=== PATIENT | female | born 1955 | race Caucasian/White ===

== ENCOUNTER 2017-02-25 16:03 | Inpatient (IN) | payer BC ==
[~2017-02-25] VITALS: Ht 165.1 cm; Wt 64.6 kg
--- NOTE | ~2017-02-25 | O ---
[place], [place] OPERATIVE NOTE [id number] UN[facility] #: [id number] ROOM: 528 DOCTOR: MERRITT PARHAM MD BIRTHDATE: [birth year] DOS: 02/26/2017 PREOPERATIVE DIAGNOSIS: Acute appendicitis. POSTOPERATIVE DIAGNOSIS: Acute appendicitis. PROCEDURE: Laparoscopic appendectomy. SURGEON: Merritt Pahram MD RANGE EXAMINER: PGY1. ANESTHESIA: General with endotracheal intubation. INDICATIONS: This is a 61-year-old lady admitted with a history of worsening abdominal pain who is here for the above-mentioned procedure. The CAT scan on admission, showed early acute appendicitis. The procedure and its complications explained to the patient in detail preoperatively. Complications that were discussed included, but were not limited to bleeding, infection, hematoma/seroma/abscess formation, prolonged postoperative pain, damage to underlying vital structures and incisional hernia formation. She agreed to proceed. DESCRIPTION OF PROCEDURE: After identifying the patient, the patient was brought to the operating suite and laid in the supine position. After induction of general anesthesia, a Desai catheter was placed and the parts were then painted and draped in the usual sterile fashion. A timeout procedure was called. An incision was made above the umbilicus in a transverse fashion. The skin and the subcutaneous tissue were incised. The fascia was incised and 2 stay sutures with 0 Vicryl were taken. The peritoneum was opened and a 10 mm Jigar port was introduced into the peritoneal cavity. A pneumoperitoneum was created. Under direct vision, a left lower quadrant incision of 10 mm and a suprapubic incision of 5 mm was made and appropriate size ports were introduced. The patient was placed in a Trendelenburg, right side up position. The cecum was mobilized and the appendix was visualized. This was found to be an inflamed without any perforation or any surrounding abscess. With the help of an Endo-Radha forceps, the appendix was held up and the mesoappendix as well as the base of the appendix was stapled across with the help of Endo-SCOTT stapler. Thereafter, the appendix was placed in an EndoCatch bag and removed from the peritoneal cavity and sent for histopathological diagnosis. Thereafter, the stump of the appendix was visualized and there was no bleeding seen. At this point, the suprapubic and the left lower quadrant ports were removed and there was no bleeding seen. The umbilical port was also removed. Thereafter, the stay sutures were tied together and an additional 0 Vicryl suture was taken to close the fascia. The edges of the skin were approximated with the help of 4-0 Vicryl in a subcuticular running fashion. Dressings were placed on all the three incisions. The patient tolerated the procedure well. There were no complications. Dr. Merritt Parham, the attending surgeon, was present throughout the operating case. [place], [place] OPERATIVE NOTE NAME: KASIA WANG UNIT #: [id number] ROOM: 528 DOCTOR: MERRITT PARHAM MD BIRTHDATE: [birth year] Merritt Parham MD CM:OPRECORD:OPERATIVE NOTE [id number] MERRITT PARHAM MD 02/26/17 0832 interface
[~2017-02-25 16:03] MED LIST: ASPIRIN81 MG PO; ATARAX25 MG PO; AUVI-Q0.3 MG/0.3 MR; CALCIUM1 CAP PO; FISH OIL 10001000 MG PO; GLIPIZIDE5 MG PO; GLUCOSAMINE500 M1 PO; JANUMET 500 MG-1 TAB PO; KENALOG0.1% TP; MEDROL DOSEPAK4 MG PO; METFORMIN500 MG PO; PEPCID20 MG PO; PERCOCET 325 MG1 TA2 PO; PREDNISONE10 MG PO
[2017-02-25 16:28] VITALS: BP 148/66
[2017-02-25] MEDS ORDERED: DAILY VALUE1 EACH PO (16:29)
[2017-02-25] MEDS ORDERED: ACTOS15 M1 PO (16:29)
[2017-02-25] MEDS ORDERED: ASPIRIN81 M1 PO (16:29)
[2017-02-25 16:42] LABS: BILIRUBIN NEGATIVE (NEGATIVE); BLOOD 1+ (NEGATIVE); CLARITY SL CLOUDY (CLEAR); COLOR YELLOW (YELLOW); GLUCOSE 1+ (NEGATIVE); KETONE NEGATIVE (NEGATIVE); LEUKO ESTERASE 2+ (NEGATIVE); NITRITE NEGATIVE (NEGATIVE); PROTEIN NEGATIVE (NEGATIVE); UROBILINOGEN 0.2 E.U./dl (0.2-1.0)
[2017-02-25 16:54] LABS: BACTERIA 1+; MUCOUS 1+; RBC 0-2 rbc/hpf (0-2); URINE REFLEX COMMENT YES (NO); WBC 21-30 wbc/hpf (0-5)
[2017-02-25 17:15] LABS: BASO % 0.2 % (0.0-1.0); HEMATOCRIT 44.7 % (37.0-47.0); HEMOGLOBIN 14.5 g/dl (12.0-16.0); IG # 0.1 10*3/uL (0.0-0.1); LYMPH # 0.8 10*3/uL (1.3-4.4); LYMPH % 5.1 % (27.0-41.0); MEAN CELL VOLUME 88.7 fl (81.0-99.0); MEAN CORPUSCULAR HGB 28.8 pg (27.0-31.0); MEAN CORPUSCULAR HGB CONC 32.4 g/dl (33.0-37.0); MEAN PLATELET VOLUME 10.3 fl (9.6-12.3); MONO # 0.9 10*3/uL (0.1-1.0); MONO % 5.6 % (3.0-9.0); NEUT % 88.7 % (47.0-73.0); PLATELET COUNT AUTOMATED 280 10*3/uL (130-400); RED BLOOD COUNT 5.04 10*6/uL (4.10-5.10); RED CELL DISTRI WIDTH 14.6 % (0-14.5); WHITE BLOOD COUNT 15.8 10*3/uL (4.8-10.8)
[2017-02-25 17:31] LABS: ALBUMIN 4.1 gm/dl (3.1-4.5); ALKALINE PHOSPHATASE 82 U/L (45-117); BILIRUBIN, TOTAL 0.4 mg/dl (0.2-1.0); BUN 13 mg/dl (7-24); C-REACTIVE PROTEIN 1.17 MG/DL (0-0.3); CARBON DIOXIDE 27 mmol/L (21-32); CHLORIDE 102 mmol/L (98-107); EST GLOM FILT AFRICAN AMERICAN > 60 ml/min; GLUCOSE 185 mg/dL (65-99); POTASSIUM 3.9 mmol/L (3.5-5.1); SGOT/AST 18 IU/L (3-35); SGPT/ALT 29 U/L (12-78); SODIUM 140 mmol/L (136-145); TOTAL PROTEIN 7.9 gm/dL (6.4-8.2)
[2017-02-25 21:28] VITALS: BP 149/72
[2017-02-25 21:30] VITALS: BP 149/72
[2017-02-26] VITALS (8 sets, daily range): BP systolic 136–145; BP diastolic 65–86
[2017-02-26 06:16] LABS: BASO % 0.2 % (0.0-1.0); EOS % 0.1 % (1.0-4.0); HEMATOCRIT 40.9 % (37.0-47.0); HEMOGLOBIN 13.1 g/dl (12.0-16.0); IG # 0.1 10*3/uL (0.0-0.1); LYMPH # 1.2 10*3/uL (1.3-4.4); LYMPH % 7.2 % (27.0-41.0); MEAN CELL VOLUME 89.3 fl (81.0-99.0); MEAN CORPUSCULAR HGB 28.6 pg (27.0-31.0); MEAN PLATELET VOLUME 10.4 fl (9.6-12.3); MONO # 0.8 10*3/uL (0.1-1.0); MONO % 5.1 % (3.0-9.0); NEUT # 14.1 10*3/uL (2.3-7.9); NEUT % 86.9 % (47.0-73.0); PLATELET COUNT AUTOMATED 247 10*3/uL (130-400); RED BLOOD COUNT 4.58 10*6/uL (4.10-5.10); RED CELL DISTRI WIDTH 14.9 % (0-14.5); WHITE BLOOD COUNT 16.2 10*3/uL (4.8-10.8)
[2017-02-26 06:44] LABS: HEMOGLOBIN A1c 6.9 % (4.8-5.6)
[2017-02-26 06:56] LABS: ALBUMIN 3.7 gm/dl (3.1-4.5); BILIRUBIN, TOTAL 0.5 mg/dl (0.2-1.0); BUN 9 mg/dl (7-24); CARBON DIOXIDE 24 mmol/L (21-32); CHLORIDE 104 mmol/L (98-107); EST GLOM FILT AFRICAN AMERICAN > 60 ml/min; GLUCOSE 166 mg/dL (65-99); PHOSPHOROUS 2.3 mg/dL (2.5-4.9); POTASSIUM 3.4 mmol/L (3.5-5.1); SGOT/AST 16 IU/L (3-35); SGPT/ALT 21 U/L (12-78); SODIUM 142 mmol/L (136-145)
[2017-02-26 07:05] LABS: INTERNATIONAL NORM RATIO 0.9 (2.0-3.5)
[2017-02-26 07:10] LABS: ALKALINE PHOSPHATASE 74 U/L (45-117); THYROID STIM HORMONE (HS) 0.674 uIU/ml (0.358-4.75); TOTAL PROTEIN 7.3 gm/dL (6.4-8.2)
== END 2017-02-26 15:24 | disposition home or self-care (01) | DRG 342 ==
LOC: ED 16:03 → EDHOLD 19:04 → 5E 19:43
PROVIDERS: Emergency Medicine; Student in an Organized Health Care Education/Training Program
PROC: 0DTJ4ZZ Resection of Appendix, Percutaneous Endoscopic Approach (ICD-10-PCS; principal; 2017-02-26)
DX: K35.80 Unspecified acute appendicitis (principal); N39.0 Urinary tract infection, site not specified; E11.65 Type 2 diabetes mellitus with hyperglycemia; K59.00 Constipation, unspecified; Z80.52 Family history of malignant neoplasm of bladder; Z82.49 Family history of ischemic heart disease and other diseases of the circulatory system; Z88.8 Allergy status to other drugs, medicaments and biological substances; Z79.82 Long term (current) use of aspirin

== ENCOUNTER 2019-09-03 06:53 | Inpatient (IN) | payer OTHER ==
[2019-09-03] VITALS (9 sets, daily range): BP systolic 122–154; BP diastolic 46–76
[~2019-09-03] VITALS: Ht 167.6 cm; Wt 58.2 kg
[~2019-09-03 06:53] MED LIST changes: +ACTOS15 M1 PO; +ASPIRIN81 M1 PO; +DAILY VALUE1 EACH PO
[2019-09-03 07:25] LABS: BASO % 0.6 % (0.0-1.0); EOS # 0.2 10*3/uL (0.0-0.4); EOS % 2.7 % (1.0-4.0); HEMATOCRIT 41.2 % (37.0-47.0); HEMOGLOBIN 13.1 g/dl (12.0-16.0); LYMPH # 1.7 10*3/uL (1.3-4.4); MEAN CELL VOLUME 91.8 fl (81.0-99.0); MEAN CORPUSCULAR HGB 29.2 pg (27.0-31.0); MEAN CORPUSCULAR HGB CONC 31.8 g/dl (33.0-37.0); MEAN PLATELET VOLUME 11.4 fl (9.6-12.3); MONO # 0.6 10*3/uL (0.1-1.0); MONO % 8.1 % (3.0-9.0); NEUT # 4.3 10*3/uL (2.3-7.9); NEUT % 63.5 % (47.0-73.0); PLATELET COUNT AUTOMATED 243 10*3/uL (130-400); RED BLOOD COUNT 4.49 10*6/uL (4.10-5.10); RED CELL DISTRI WIDTH 14.8 % (0-14.5); WHITE BLOOD COUNT 6.8 10*3/uL (4.8-10.8)
[2019-09-03 07:38] LABS: ACT PARTIAL THROMBO TIME 27.5 SECONDS (20.0-32.1); INTERNATIONAL NORM RATIO 0.9 (2.0-3.5)
[2019-09-03 07:46] LABS: ALBUMIN 3.6 gm/dl (3.1-4.5); ALKALINE PHOSPHATASE 53 U/L (45-117); BUN 15 mg/dl (7-24); CHLORIDE 107 mmol/L (98-107); CREATININE 0.76 mg/dL (0.55-1.02); SGOT/AST 17 IU/L (3-35); SGPT/ALT 19 U/L (12-78); SODIUM 142 mmol/L (136-145); TOTAL PROTEIN 6.5 gm/dL (6.4-8.2)
--- NOTE | 2019-09-03 08:00 | NUR ---
NO REILEF FROM DR ERIKA FERGUSON AT BEDSIDE.
[2019-09-03 08:02] LABS: TROPONIN I < 0.015 ng/ml (<0.045)
--- NOTE | 2019-09-03 08:16 | NUR ---
CONTINUES TO HAVE NO RELIEF FROM NITRO PER PT.
--- NOTE | 2019-09-03 08:30 | NUR ---
A 64, admitted to , under the services of ONIEL Liu DO with a diagnosis of CHEST PAIN. Chief complaint is CHEST PAIN. Patient arrived via stretcher from ER. Monitor applied. Initial assessment completed. Vital signs taken and recorded. ONIEL LIU DO notified of admission to the unit. Orders received. See assessment for past medical history, medications and allergies. Patient and/or family oriented to unit. [facility] Clothing/patient valuable form completed. BEAU GÓMEZ
[2019-09-03] MEDS ORDERED: JANUMET XR 50-1 EAC1 PO (08:51)
[2019-09-03] MEDS ORDERED: ACTOS45 M1 PO (08:51)
--- NOTE | 2019-09-03 09:19 | NUR ---
DR. BANEGAS AWARE PATIENT ON THE UNIT AND MEDICATIONS UPDATED
--- NOTE | 2019-09-03 09:33 | NUR ---
dr. jacques office notified of new consult
--- NOTE | 2019-09-03 18:49 | NUR ---
PT IN THE SHOWER
--- NOTE | 2019-09-03 20:12 | NUR ---
24 HR chart check completed.
--- NOTE | 2019-09-03 21:42 | NUR ---
SITTING IN BED WATCHING TV. RESPIRATIONS EASY. LUNGS DIMINISHED, CLEAR. PULSE OX 100% RA. NON-PITTING BLE EDEMA NOTED. MEDICATED WITH NORCO PER PRN ORDER FOR C/O PAIN/PRESSURE TO CHEST RATING A 5. ALSO MEDICATED WITH RESTORIL TO ASSIST WITH SLEEP. CALL LIGHT WITHIN REACH. WILL MONITOR
--- NOTE | 2019-09-03 23:00 | NUR ---
MEDS APPEAR EFFECTIVE. SLEEPING. RESPIRATIONS EASY. CALL LIGHT WITHIN REACH
[2019-09-04] VITALS: BP 118/52
--- NOTE | 2019-09-04 00:20 | NUR ---
SLEEPING. NO DISTRESS NOTED. RESPIRATIONS EASY. VSS. CALL LIGHT WITHIN REACH.
--- NOTE | 2019-09-04 06:00 | NUR ---
SLEPT THROUGHOUT NIGHT WITH NO DISTRESS NOTED. RESPIRATIONS EASY. CALL LIGHT WITHIN REACH. NO VOICED COMPLAINTS THIS SHIFT. NPO STATUS MAINTAINED FOR TESTING THIS AM
[2019-09-04 07:16] LABS: BASO % 0.6 % (0.0-1.0); EOS # 0.1 10*3/uL (0.0-0.4); EOS % 1.7 % (1.0-4.0); HEMATOCRIT 41.7 % (37.0-47.0); HEMOGLOBIN 13.2 g/dl (12.0-16.0); LYMPH # 1.6 10*3/uL (1.3-4.4); LYMPH % 22.5 % (27.0-41.0); MEAN CELL VOLUME 92.3 fl (81.0-99.0); MEAN CORPUSCULAR HGB 29.2 pg (27.0-31.0); MEAN CORPUSCULAR HGB CONC 31.7 g/dl (33.0-37.0); MEAN PLATELET VOLUME 11.3 fl (9.6-12.3); MONO # 0.7 10*3/uL (0.1-1.0); MONO % 10.1 % (3.0-9.0); NEUT # 4.5 10*3/uL (2.3-7.9); NEUT % 64.7 % (47.0-73.0); PLATELET COUNT AUTOMATED 246 10*3/uL (130-400); RED BLOOD COUNT 4.52 10*6/uL (4.10-5.10); RED CELL DISTRI WIDTH 15.1 % (0-14.5); WHITE BLOOD COUNT 6.9 10*3/uL (4.8-10.8)
[2019-09-04 07:22] LABS: ALBUMIN 3.6 gm/dl (3.1-4.5); BUN 11 mg/dl (7-24); CHLORIDE 106 mmol/L (98-107); POTASSIUM 3.6 mmol/L (3.5-5.1); SODIUM 139 mmol/L (136-145)
[2019-09-04 07:33] LABS: ALKALINE PHOSPHATASE 57 U/L (45-117); CHOLESTEROL 162 mg/dL (<200); CREATININE 0.76 mg/dL (0.55-1.02); HDL CHOLESTEROL 73 mg/dl (40-60); LDL CHOLESTEROL 71 mg/dL (9-159); SGOT/AST 15 IU/L (3-35); SGPT/ALT 20 U/L (12-78); TRIGLYCERIDES 90 mg/dl (<150); VLDL CHOLESTEROL 18 mg/dL (6-40)
--- NOTE | 2019-09-04 08:31 | NUR ---
Patient not available for Occupational Therapy as she is with the nurse practitioner. Jaja Martinez OTR/L
--- NOTE | 2019-09-04 08:31 | NUR ---
PHYSICAL THERAPY Pt speaking with nurse practitioner. Will attempt at a later time. thank you Usha Batista, PT, DPT
--- NOTE | 2019-09-04 10:25 | NUR ---
INFORMED CONSENT SIGNED FOR CARDIOLYTE STRESS TEST WITH DR. SERNA. RESTING EKG NSR, HR 80, BP 118/68. COMPLETED 9:30 OF A STANDARD LEXI PROTOCOL COMPLETING :30 STAGE IV, 4.2MPH/16% GRADE. PEAK HEART RATE OF 146 ACHIEVED WHICH IS 94% PREDICTED MAXIMUM AND A PEAK BP OF 150/74. TEST TERMINATED D/T FATIGUE. NO ARRHYTHMIAS OR ST CHANGES NOTED. PT CHEST INCREASED TO A 6/10 AT STAGE II BEFORE RETURNING TO A STARTING PAIN OF 5/10 TWO MINUTES IN RECOVERY. HAS A GOOD EXERCISE TOLERANCE. LAST RECOVERY HR 98, BP 130/62. WAITING NUCLEAR SCANNING IN STABLE CONDITION.
[2019-09-04 12:00] VITALS: BP 112/49
--- NOTE | 2019-09-04 12:46 | NUR ---
Finisher Plate in to talk to patient. Patient states lives at home with . There are few steps in the home. Physician: jeimy castaneda Pharmacy: [facility] health services: none Patient's level of ADLs: INDEPENDENT Patient has working utilities: all working DME: none Follow-up physician's appointment after d/c: will be made by hospitalist nurse director upon discharge Does patient want to access PORTAL?: no Discharge plan discussed with patient, she lives at home with , she is independent in adls and ambulation she states she will be returning home when medically stable and denies any home needs. PARESH CASTRO
--- NOTE | 2019-09-04 13:59 | NUR ---
Discharge instructions reviewed with patient/family. Patient receptive and verbalizes understanding. Follow-up care arranged. Written instructions given to patient/family. TELEMETRY AND IV REMOVED LIZA MUIR
--- NOTE | 2019-09-09 12:19 | NUR ---
Alyssa from [facility] requested additional clinicals on the patient to be sent to fax [phone]. [employer] faxed clinicals. -DANIA Jones
== END 2019-09-04 13:59 | disposition home or self-care (01) | DRG 206 ==
LOC: ED 06:53 → 4E 08:13 → EDHOLD 08:13 → 4E 08:23
PROVIDERS: Emergency Medicine; Student in an Organized Health Care Education/Training Program; ADMIT Internal Medicine
PROC: 4A02XM4 Measurement of Cardiac Total Activity, External Approach (ICD-10-PCS; principal; 2019-09-04)
PROC: 3E073KZ Introduction of Other Diagnostic Substance into Coronary Artery, Percutaneous Approach (ICD-10-PCS; principal; 2019-09-04)
DX: M94.0 Chondrocostal junction syndrome [Tietze] (principal); E11.65 Type 2 diabetes mellitus with hyperglycemia; D72.810 Lymphocytopenia; Z82.49 Family history of ischemic heart disease and other diseases of the circulatory system; Z88.4 Allergy status to anesthetic agent; Z87.440 Personal history of urinary (tract) infections; Z90.49 Acquired absence of other specified parts of digestive tract; Z80.52 Family history of malignant neoplasm of bladder; Z82.61 Family history of arthritis; Z79.899 Other long term (current) drug therapy; Z79.82 Long term (current) use of aspirin; R94.31 Abnormal electrocardiogram [ECG] [EKG]

== ENCOUNTER → 2024-01-07 | Outpatient (CLI) | payer OTHER ==
[~2024-01-07] MED LIST changes: +ACTOS45 M1 PO; +JANUMET XR 50-1 EAC1 PO
== END | disposition home or self-care (01) ==
LOC: MRI 13:44
PROVIDERS: ATTEND Podiatrist Foot & Ankle Surgery
DX: S99.922A Unspecified injury of left foot, initial encounter (principal); M19.072 Primary osteoarthritis, left ankle and foot; M77.52 Other enthesopathy of left foot and ankle; M25.80 Other specified joint disorders, unspecified joint; X58.XXXA Exposure to other specified factors, initial encounter; Y93.89 Activity, other specified; Y92.89 Other specified places as the place of occurrence of the external cause; Y99.8 Other external cause status